=== PATIENT | female | born 1950 | race Hispanic/Latino ===

== ENCOUNTER → 2018-11-15 | Outpatient (CLI) | payer OTHER ==
[~2018-11-15] MED LIST: ALEN70TA47 PO; DSS100 PO; ERGO500014 PO; LEVO50TA11 PO; OMEG-75 PO
== END | disposition home or self-care (01) ==
LOC: RAH 11:27
PROVIDERS: ATTEND Family Medicine
DX: M19.012 Primary osteoarthritis, left shoulder (principal); M75.102 Unspecified rotator cuff tear or rupture of left shoulder, not specified as traumatic
CPT/HCPCS: 73221

== ENCOUNTER 2022-12-17 17:28 | Emergency (ER) | payer OTHER ==
[~2022-12-17] VITALS: Ht 147.3 cm; Wt 54.4 kg
[~2022-12-17 17:28] MED LIST changes: -ALEN70TA47 PO; +ALEN70TA80 PO; +OMEG-189 PO; -OMEG-75 PO
[2022-12-17] MEDS ORDERED: ONDANSETRON ODT 4MG TAB SL ONE (18:00)
[2022-12-17] MEDS ORDERED: MORPHINE 4 MG SYG IM ONE (18:00)
[2022-12-17] MEDS ORDERED: NAPR-1180 PO (18:39)
[2022-12-17] MEDS ORDERED: CYCL10TA16 PO (18:39)
[2022-12-17] MEDS ORDERED: HYDR-4060 PO (18:39)
[2022-12-17 18:44] VITALS: BP 144/56
== END 2022-12-17 18:51 | disposition home or self-care (01) ==
LOC: EDH 17:28
DX: M54.50 Low back pain, unspecified (principal); E11.9 Type 2 diabetes mellitus without complications; E78.00 Pure hypercholesterolemia, unspecified; I10 Essential (primary) hypertension; Z87.442 Personal history of urinary calculi; Z90.49 Acquired absence of other specified parts of digestive tract; Z79.899 Other long term (current) drug therapy
CPT/HCPCS: 99285; 74176; 96372; J2270

== ENCOUNTER 2023-03-10 20:36 | Emergency (ER) | payer OTHER ==
[~2023-03-10] VITALS: Ht 149.9 cm; Wt 61.7 kg
[~2023-03-10 20:36] MED LIST changes: +CYCL10TA16 PO; +HYDR-4060 PO; +NAPR-1180 PO
[2023-03-10 21:15] LABS: BASOPHILS % (AUTO) 0.3 % (0.0-5.0); EOSINOPHILS % (AUTO) 0.8 % (0.0-8.0); HEMATOCRIT 45.3 % (36-48); LYMPHOCYTES % (AUTO) 38.9 % (21.0-51.0); MEAN CORPUSCULAR HEMOGLOBIN 30.8 pg (27.0-33.0); MEAN CORPUSCULAR HGB CONC 34.2 g/dL (32.0-36.0); MEAN CORPUSCULAR VOLUME 90.1 fL (79-99); NEUTROPHILS % (AUTO) 51.8 % (40.0-77.0); PLATELET COUNT (AUTO) 216 K/uL (130-400); RED BLOOD CELL COUNT(AUTO) 5.03 MIL/uL (4.00-5.50); RED CELL DISTRIBUTION WIDTH 13.5 % (11.0-15.5); WHITE BLOOD COUNT (AUTO) 6.7 K/uL (4.8-10.8)
[2023-03-10 21:29] LABS: CREATININE 0.7 mg/dL (0.5-1.5); POTASSIUM 3.8 mmol/L (3.5-5.1)
[2023-03-10 21:34] LABS: ALBUMIN 4.6 g/dL (3.5-5.0); TOTAL PROTEIN, SERUM 7.9 g/dL (6.0-8.3)
[2023-03-10 23:48] VITALS: BP 129/90
[2023-03-10] MEDS ORDERED: IBUP-1493 PO (23:57)
== END 2023-03-11 00:08 | disposition home or self-care (01) ==
LOC: EDH 20:36
DX: M54.12 Radiculopathy, cervical region (principal); R07.89 Other chest pain; E11.9 Type 2 diabetes mellitus without complications; E78.00 Pure hypercholesterolemia, unspecified; E03.9 Hypothyroidism, unspecified; Z79.1 Long term (current) use of non-steroidal anti-inflammatories (NSAID); Z90.49 Acquired absence of other specified parts of digestive tract; Z79.899 Other long term (current) drug therapy
CPT/HCPCS: 36415; 71045; 72050; 80053; 84484; 85025; 93005

== ENCOUNTER 2025-09-07 05:59 | Emergency (ER) | payer OTHER ==
[~2025-09-07] VITALS: Ht 147.3 cm; Wt 56.8 kg
[~2025-09-07 05:59] MED LIST changes: -CYCL10TA16 PO; -HYDR-4060 PO; +IBUP-1493 PO; -NAPR-1180 PO; -OMEG-189 PO; +OMEG-237 PO
--- NOTE | 2025-09-07 06:26 | NUR ---
PT CARE ASSUMED AT THIS TIME
--- NOTE | 2025-09-07 06:40 | EKG ---
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
--- NOTE | 2025-09-07 06:49 | ERN ---
General Chief Complaint: Flank Pain Stated Complaint: R FLANK PAIN RADIATING TO RUQ ABD Time Seen by MD: 06:15 Source: patient, family History of Present Illness Initial Comments 75-year-old female with a history of right flank pain/right middle back pain that migrates around to the front of her abdomen. No associated fevers chills nausea vomiting or diarrhea. Patient has had this symptom on and off for several weeks but today was the worst it has been. Also no change in urination or bowel movements. Able to eat and drink fine. Allergies: Coded Allergies: No Known Allergies (Verified Allergy, Unknown, 08/09/16) Home Meds Active Scripts Ibuprofen (Motrin/Advil) 800 Mg Tab, 800 MG PO TID, #30 TAB Prov:GRETCHEN CHEW MD 03/10/23 Reported Medications Mcintire-3 Acid Ethyl Esters (Mcintire-3 Acid Ethyl Esters) 1 Gm Capsule, 2 CAP PO DAILY 08/09/16 Ergocalciferol (Vitamin D2) (Vitamin D2) 50,000 Unit Capsule, 1 CAP PO QWEEK ON 08/09/16 Docusate Sodium (Colace/Dss) 100 Mg Cap, 100 MG PO BID 08/09/16 Levothyroxine Sodium (Levothyroxine Sodium) 50 Mcg Tablet, 50 MCG PO ACBKFST 08/09/16 Alendronate Sodium (Alendronate Sodium) 70 Mg Tablet, 70 MG PO QWEEKACB ON Mondays08/09/16 Past Medical History Past Medical History: Diabetes-Type II, GERD, High Cholesterol, Hypothyroid Past Surgical History: Cholecystectomy Social History Social History: Negative Constitutional: (-) chills, (-) diaphoresis, (-) fever, (-) malaise, (-) weakness, (-) other documentation EENTM: (-) eye pain, (-) blurred vision, (-) tearing, (-) double vision, (-) ear pain, (-) ear discharge, (-) nose pain, (-) nose congestion, (-) throat pain, (-) Throat swelling, (-) mouth pain, (-) tooth pain, (-) mouth swelling, (-) other documentation Respiratory: (-) cough, (-) orthopnea, (-) short of breath, (-) stridor, (-) wheezing, (-) other documentation Cardiovascular: (-) chest pain, (-) edema, (-) palpitations, (-) syncope, (-) dyspnea on exertion, (-) other documentation Gastrointestinal/Abdominal: (-) nausea, (-) vomiting, (-) diarrhea, (-) abdominal pain, (-) abdominal distention, (-) constipation, (-) rectal bleeding, (-) dark stool/melena, (-) other documentation Genitourinary: (-) vaginal discharge, (-) vaginal bleeding, (-) dysuria, (-) frequency, (-) hematuria, (-) pain, (-) other documentation Musculoskeletal: (+) back pain, (+) Flank Pain Skin: (-) laceration, (-) contusion, (-) abrasion, (-) abscess, (-) rash, (-) change in color, (-) change in hair, (-) change in nails, (-) diaphoresis, (-) dryness, (-) other documentation Physical Exam General Appearance: (+) moderate distress Orientation: (+) alert, (+) oriented x 3 Head/Face Trauma: No Eye: bilateral eye normal inspection, bilateral eye PERRL, bilateral eye EOMI Ear, Nose, Throat: (+) hearing grossly normal, (+) normal ENT inspection, (+) moist mucous membraine Neck: (+) normal inspection, (+) supple, (+) full range of motion, (+) no JVD Respiratory: (+) lungs clear, (+) well ventilated Respiratory Comment Patient has right back tenderness along the T10 rib and the interstitial muscles there in. Heart: (+) regular, (+) no gallop Vascular: (+) no edema, (+) normal peripheral pulse, (+) no JVD Gastrointestinal: (+) soft, (+) non-tender, (+) bowel sound present Results Laboratory and Microbiology Lab and Micro Result Laboratory Tests Test 09/07/25 06:50 09/07/25 07:19 White Blood Count 5.6 K/uL (4.8-10.8) Red Blood Count 4.30 MIL/uL (4.00-5.50) Hemoglobin 13.8 g/dL (12.0-16.0) Hematocrit 39.1 % (36-48) Mean Corpuscular Volume 90.9 fL (79-99) Mean Corpuscular Hemoglobin 32.1 pg (27.0-33.0) Mean Corpuscular Hemoglobin Concent 35.3 g/dL (32.0-36.0) Red Cell Distribution Width 13.5 % (11.0-15.5) Platelet Count 176 K/uL (130-400) Mean Platelet Volume 10.4 fL (7.5-10.5) Immature Granulocyte % (Auto) 0.4 % (0-1) Neutrophils (%) (Auto) 75.3 % (40.0-77.0) Lymphocytes (%) (Auto) 14.9 % (21.0-51.0) L Monocytes (%) (Auto) 9.2 % (3.0-13.0) Eosinophils (%) (Auto) 0.0 % (0.0-8.0) Basophils (%) (Auto) 0.2 % (0.0-5.0) Neutrophils # (Auto) 4.3 K/uL (1.8-7.7) Lymphocytes # (Auto) 0.8 K/uL (1.0-4.8) L Monocytes # (Auto) 0.5 K/uL (0.1-1.0) Eosinophils # (Auto) 0.00 K/uL (0.00-0.70) Basophils # (Auto) 0.01 K/uL (0.00-0.20) Absolute Immature Granulocyte (auto 0.02 K/uL (0-1) Nucleated Red Blood Cells 0.0 % (0.0-0.19) Sodium Level 136 mmol/L (136-145) Potassium Level 3.8 mmol/L (3.5-5.1) Chloride Level 102 mmol/L (101-111) Carbon Dioxide Level 24 mmol/L (21-32) Blood Urea Nitrogen 8 mg/dL (7-18) Creatinine 0.8 mg/dL (0.5-1.0) Glomerular Filtration Rate Calc 77 mL/min (>90) Random Glucose 192 mg/dL (70-105) H Total Calcium 8.8 mg/dL (8.5-10.1) Urine Color YELLOW (YELLOW) Urine Appearance CLEAR (CLEAR) Urine pH 7.0 (5.0-8.0) Urine Specific Cuthbert 1.017 (1.001-1.031) Urine Protein NEGATIVE mg/dL (NEGATIVE) Urine Glucose (UA) NEGATIVE mg/dL (NEGATIVE) Urine Ketones NEGATIVE mg/dL (NEGATIVE) Urine Occult Blood NEGATIVE (NEGATIVE) Urine Nitrate NEGATIVE (NEGATIVE) Urine Bilirubin NEGATIVE mg/dL (NEGATIVE) Urine Urobilinogen 2.0 mg/dL (0.2-1.0) H Urine Leukocyte Esterase NEGATIVE Sheree/uL Urine RBC 2-5 /HPF (0-1) H Urine WBC 2-5 /HPF (0-1) H Urine Squamous Epithelial Cells RARE /HPF (0-2) Urine Bacteria None /HPF (None Seen) MDM MDM: Differential diagnosis: Rib fracture, muscle strain, dehydration, neuralgia, electrolyte disorder, referred gallbladder pain, dislocated rib Rationale: Tests considered and ordered secondary to shared decision making include: Previous outside records reviewed: Old ER visits. Risk of complication and/or morbidity or mortality of patient management: None Medications-Per medication reconciliation Need for hospitalization: Patient does meet criteria for hospitalization. Need for emergency major/minor surgery: No There are no social concerns with this patient. Prescription drug management Prescriptions will include symptomatic care Patient's prior external medical records from other ER visits were reviewed by me as indicated. Prior testing and results from previous visits were reviewed. Prior tests were taken into account with medical decision making and resource utilization, independent historian/historians were used to obtain complete medical history. I independently interpreted the test that were performed, results were reviewed by me and considered findings on radiology if ordered. Patient handed off at shift change pending repeat evaluation for flank pain stable workup negative CT scan vital signs stable stable for discharge. ED Course Orders Procedure Category Date Status Time 12 Lead Ekg Tracing- EKG 09/07/25 Complete Technical 06:31 Basic Metabolic Panel LAB 09/07/25 Complete 06:31 Cbc With Differential LAB 09/07/25 Complete 06:31 Urinalysis Profile LAB 09/07/25 Complete 06:31 Lactated Ringers PHA 09/07/25 Complete 1000ml (Lactated 06:31 Orphenadrine Citrate PHA 09/07/25 Complete (Norflex) 07:00 Ketorolac PHA 09/07/25 Complete Tromethamine 30mg/Ml 07:00 Chest 1vw RAD 09/07/25 Resulted 06:49 Ct Abd/Pel Wo Con CT 09/07/25 Resulted Renal/Appy 07:34 Current Medications Medications (Trade) Dose Ordered Sig/Nicky Route PRN Reason Start Time Stop Time Status Last Admin Dose Admin Ketorolac Tromethamine (toRADol) 30 mg ONCE ONCE IVP 09/07/25 07:00 09/07/25 07:01 DC 09/07/25 06:50 Lactated Ringer's (Lactated Ringers 1000ml) 1,000 ml BOLUS STAT IV 09/07/25 06:31 09/07/25 06:34 DC 09/07/25 06:50 Orphenadrine Citrate (Norflex) 60 mg ONCE ONCE IVP 09/07/25 07:00 09/07/25 07:01 DC 09/07/25 06:50 Vital Signs Date Time Temp Pulse Resp B/P (MAP) Pulse Ox O2 Delivery O2 Flow Rate FiO2 09/07/25 08:34 98.8 64 18 15/59 100 Room Air* 0 21 09/07/25 06:31 101.1 82 17 142/56 100 Room Air* 0 21 09/07/25 06:01 101.1 87 18 137/72 99 Room Air 0 DX & DISP Disposition: Discharge Departure Impression: Primary Impression: Flank pain, right side Condition: Stable Scripts Cyclobenzaprine HCl (Cyclobenzaprine HCl) 5 Mg Tablet 5 MG PO BID for 5 Days, #10 TAB Prov: ANDER WOLFF MD 09/07/25 Referrals: SYLVIA JIMENES MD (PCP) MOISES CIFUENTES MD Sep 07, 2025 06:49 ANDER WOLFF MD Sep 07, 2025 10:37
[2025-09-07] MEDS: LACTATED RINGERS 1000ML IV STA (06:50)
[2025-09-07] MEDS: ORPHENADRINE 60MG/2ML IVP ONE (06:50)
[2025-09-07 06:58] LABS: IMMATURE GRANULOCYTE ABSOLUTE 0.02 K/uL (0-1); NUCLEATED RED BLOOD CELLS 0.0 % (0.0-0.19); PLATELET COUNT (AUTO) 176 K/uL (130-400); RED BLOOD CELL COUNT(AUTO) 4.30 MIL/uL (4.00-5.50); RED CELL DISTRIBUTION WIDTH 13.5 % (11.0-15.5); WHITE BLOOD COUNT (AUTO) 5.6 K/uL (4.8-10.8)
--- NOTE | 2025-09-07 07:17 | NUR ---
REPORT GIVEN TO KINDRA LEYVA
[2025-09-07 07:28] LABS: CREATININE 0.8 mg/dL (0.5-1.0); GLOMERULAR FILTR. RATE CALC 77.0 mL/min (>90); GLUCOSE,RANDOM 192.0 mg/dL (70-105); SODIUM SERUM 136.0 mmol/L (136-145); UREA NITROGEN, BLOOD 8.0 mg/dL (7-18)
[2025-09-07 07:38] LABS: APPEARANCE,URINE CLEAR (CLEAR); GLUCOSE, URINE (UA) NEGATIVE (NEGATIVE); LEUKOCYTE ESTERASE ,URINE NEGATIVE Leu/uL (NEGATIVE); NITRATE,URINE NEGATIVE (NEGATIVE); OCCULT BLOOD,URINE NEGATIVE (NEGATIVE)
[2025-09-07 07:41] LABS: ADD UA MICROSCOPIC YES
[2025-09-07 07:42] LABS: SQUAMOUS EPITHELIAL CELL,UR RARE /HPF (0-2)
--- NOTE | 2025-09-07 09:48 | HMCIMG ---
CHEST 1VW REASON: right chest wall pain COMPARISON: Prior study from 03/10/2023 is available. FINDINGS: Single view of the chest was obtained. Lungs are clear. Heart size is normal. There is no pulmonary vascular congestion. Mediastinum and bony thorax appear unremarkable. Study is unchanged from prior study. IMPRESSION: 1. Normal single view chest x-ray.
--- NOTE | 2025-09-07 10:23 | HMCIMG ---
CT ABD/PEL WO CON RENAL/APPY CT CHEST REASON: right flank pain. COMPARISON: None. TECHNIQUE: Multiple sequential axial images of the chest were obtained during IV administration of 100 mL Isovue 300%. FINDINGS: Heart: Normal size. Aorta: Normal caliber and opacification. Pulmonary arteries: Normal caliber without filling defects. Mediastinum and ander: No lymphadenopathy or mass noted. Pleural spaces: No pleural effusion or pneumothorax. Lungs: Normal volumen without consolidation or nodule. Chest wall: Unremarkable. Upper abdomen: Visualized bowel and solid organs are unremarkable. IMPRESSION: No acute process noted. CT ABD/PEL HISTORY: right flank pain. COMPARISON: None. TECHNIQUE: Sequential axial images of abdomen and pelvis were obtained without intravenous and oral contrast.. Sagittal and coronal reconstructions were performed. FINDINGS: Lung bases: Clear. Liver: The liver demonstrates geographic hepatic steatosis. No dilated ductal mass seen.. Portal vein: Patent. Gallbladder: The gallbladder is surgically absent with clips in the gallbladder fossa. Spleen: Normal. Kidneys: Normal size and shape. There is no renal calculi or obstructive uropathy. Adrenal glands: Normal Pancreas: Unremarkable. Stomach and small bowel: No inflammation or distention noted. Colon: Unremarkable. Appendix: Normal. Bladder: Partially distended and unremarkable. Reproductive system: The uterus is mildly deviating towards the left side otherwise the ASSISTANT MANAGER PT structures appears to be normal.. Abdominal aorta: Normal caliber. There is mild atherosclerotic changes of calcified plaque of the abdominal aorta with no evidence of aneurysmal dilatation. Skeletal: No acute abnormality. IMPRESSION: No acute processes noted.
[2025-09-07] MEDS ORDERED: CYCL5TAB3 PO (10:36)
[2025-09-07 11:00] VITALS: BP 115/61; PULSE 62; RESP 18; TEMP 98.8; O2SAT 99
== END 2025-09-07 11:11 | disposition home or self-care (01) ==
LOC: EDH 05:59
DX: R10.A1 Flank pain, right side (principal); E03.9 Hypothyroidism, unspecified; E11.9 Type 2 diabetes mellitus without complications; E78.00 Pure hypercholesterolemia, unspecified; Z79.1 Long term (current) use of non-steroidal anti-inflammatories (NSAID); Z90.49 Acquired absence of other specified parts of digestive tract
CPT/HCPCS: 99285; 74176; 96374; 71045; 96361; 96375; 80048; 85025; 81001; 36415; 93005; J1885; J7120; J2360